=== PATIENT | male | born 1945 | race Caucasian/White ===

== ENCOUNTER 2016-07-26 08:26 | Day surgery (SDC) | payer BC ==
--- NOTE | ~2016-07-26 | EGD ---
EGD REPORT [facility] [address] [address] NAME: BLAYNE KIM : [birth year] STATUS : REG [facility] PAT#: [id number] AGE: 71 ADM/REG DATE : 07/26/16 MR#: [id number] REPORT SERV DATE: 07/26/16 DICTATED BY: MATTHEW SALINAS DATE: 07/26/16 REPORT STATUS : Draft TRANSCRIBED BY: [facility] DATE: 07/26/16 [facility] Patient Name: Blayne Kim Date of : 1945 Attending MD: MATTHEW SALINAS MD Procedure Date No Time: 07/26/2016 Procedure: Colonoscopy Indications: Generalized abdominal pain, Chronic diarrhea Referring MD: ZACH FOURNIER MD Medicines: Propofol per Anesthesia Complications: No immediate complications. Procedure: Pre-Anesthesia Assessment: - ASA Grade Assessment: III - A patient with severe systemic disease. After I obtained informed consent, the scope was passed under direct vision. Throughout the procedure, the patient's blood pressure, pulse, and oxygen saturations were monitored continuously. The CF [id number] was introduced through the anus and advanced to the cecum, identified by appendiceal orifice and ileocecal valve. The colonoscopy was performed without difficulty. The patient tolerated the procedure well. The quality of the bowel preparation was good. Findings: The perianal and digital rectal examinations were normal. The colon (entire examined portion) appeared normal. Internal hemorrhoids were found during retroflexion and were Grade I (internal hemorrhoids that do not prolapse). Impression: - The entire examined colon is normal. - Internal hemorrhoids. Recommendation: - Discharge patient to home (ambulatory). Procedure Code(s): --- Professional --- 69488, Colonoscopy, flexible, proximal to splenic flexure; diagnostic, with or without collection of specimen(s) by brushing or washing, with or without colon decompression (separate procedure) Diagnosis Code(s): --- Professional --- K64.0, First degree hemorrhoids R10.84, Generalized abdominal pain K52.9, Noninfective gastroenteritis and colitis, EGD REPORT [facility] [address] [place], [place] [address] [facility] [address] NAME: BLAYNE KIM : [birth year] STATUS : REG [facility] PAT#: [id number] AGE: 71 ADM/REG DATE : 07/26/16 MR#: [id number] REPORT SERV DATE: 07/26/16 DICTATED BY: MATTHEW SALINAS. DATE: 07/26/16 REPORT STATUS : Draft TRANSCRIBED BY: [email or web address] DATE: 07/26/16 unspecified CPT copyright 2013 [employer]. All rights reserved. The codes documented in this report are preliminary and upon optical assistant review may be revised to meet current compliance requirements. Matthew Salinas MD MATTHEW SALINAS MD 07/26/2016 9:17 AM This report has been signed electronically. Number of Addenda: 0 Note Initiated On: 07/26/2016 8:53 AM Scope Withdrawal Time 0 hours 6 minutes 16 seconds [address] [facility] [place] [address]
--- NOTE | ~2016-07-26 | EGD ---
EGD REPORT [facility] [address] [address] NAME: BLAYNE KIM : [birth year] STATUS : REG [facility]#: [id number] AGE: 71 ADM/REG DATE : 07/26/16 MR#: [id number] REPORT SERV DATE: 07/26/16 DICTATED BY: MATTHEW SALINAS DATE: 07/26/16 REPORT STATUS : Draft TRANSCRIBED BY: [facility] DATE: 07/26/16 Endoscopy Center Patient Name: Blayne Kim Date of : 1945 Attending MD: MATTHEW SALINAS MD Procedure Date No Time: 07/26/2016 Procedure: Upper GI endoscopy Indications: Epigastric abdominal pain, Dysphagia Referring MD: ZACH FOURNIER MD Medicines: Propofol per Anesthesia Complications: No immediate complications. Procedure: Pre-Anesthesia Assessment: - ASA Grade Assessment: III - A patient with severe systemic disease. After obtaining informed consent, the endoscope was passed under direct vision. Throughout the procedure, the patient's blood pressure, pulse, and oxygen saturations were monitored continuously. The GIF [id number] was introduced through the mouth, and advanced to the second part of duodenum. The upper GI endoscopy was accomplished without difficulty. The patient tolerated the procedure well. Findings: A benign-appearing, intrinsic mild stenosis was found and was traversed. A guidewire was placed and the scope was withdrawn. Dilation was performed with a Savary dilator with no resistance at 54 Fr. Diffuse mild inflammation characterized by erosions and erythema was found in the stomach. Biopsies were taken with a cold forceps for histology. The examined duodenum was normal. Biopsies were taken with a cold forceps for histology. Impression: - Benign-appearing esophageal stricture. Dilated. - Chronic gastritis. Biopsied. - Normal examined duodenum. Biopsied. Recommendation: - Discharge patient to home (ambulatory). Procedure Code(s): --- Professional --- 98184, Esophagogastroduodenoscopy, flexible, transoral; with insertion of guide wire followed by passage of dilator(s) through esophagus over guide wire 53934, Esophagogastroduodenoscopy, flexible, transoral; with biopsy, single or multiple EGD REPORT [facility] [address] [address] NAME: BLAYNE KIM : [birth year] [place] : [place] [facility] PAT#: [id number] AGE: 71 ADM/REG DATE : 07/26/16 MR#: [id number] REPORT SERV DATE: 07/26/16 DICTATED BY: MATTHEW SALINAS. DATE: 07/26/16 REPORT STATUS : Draft TRANSCRIBED BY: [employer] DATE: 07/26/16 Diagnosis Code(s): --- Professional --- K22.2, Esophageal obstruction K29.50, Unspecified chronic gastritis without bleeding R10.13, Epigastric pain R13.10, Dysphagia, unspecified CPT copyright 2013 [employer]. All rights reserved. The codes documented in this report are preliminary and upon health and human performance professor review may be revised to meet current compliance requirements. Matthew Salinas MD MATTHEW SALINAS MD 07/26/2016 9:07 AM This report has been signed electronically. Number of Addenda: 0 Note Initiated On: 07/26/2016 8:55 AM Scope Withdrawal Time 0 hours 0 minutes [address] [place], [place] [address] [address]
[~2016-07-26 08:26] MED LIST: ACIPHEX PO; CHLORTHALID50 MG PO; GLUCOPHXR7 PO; LEXAPRO20 PO; LIPITOR20 PO; LISINOPRIL40 MG PO; NORCO1 TA1 PO; NORV5 PO; PRILO PO; ZOCOR40 PO
== END 2016-07-26 23:59 | disposition home health service (06) ==
LOC: DMU 08:26
PROVIDERS: Internal Medicine Gastroenterology
PROC: 0D748ZZ Dilation of Esophagogastric Junction, Via Natural or Artificial Opening Endoscopic (ICD-10-PCS; principal; 2016-07-26 09:30)
PROC: 0DB68ZX Excision of Stomach, Via Natural or Artificial Opening Endoscopic, Diagnostic (ICD-10-PCS; 2016-07-26 09:30)
PROC: 0DJD8ZZ Inspection of Lower Intestinal Tract, Via Natural or Artificial Opening Endoscopic (ICD-10-PCS; 2016-07-26 09:30)
DX: K31.7 Polyp of stomach and duodenum (principal); K22.2 Esophageal obstruction; K64.0 First degree hemorrhoids; K52.9 Noninfective gastroenteritis and colitis, unspecified; I10 Essential (primary) hypertension; E78.5 Hyperlipidemia, unspecified; E78.00 Pure hypercholesterolemia, unspecified; G47.33 Obstructive sleep apnea (adult) (pediatric); F32.9 Major depressive disorder, single episode, unspecified; K21.9 Gastro-esophageal reflux disease without esophagitis; E11.9 Type 2 diabetes mellitus without complications; Z79.899 Other long term (current) drug therapy; Z88.8 Allergy status to other drugs, medicaments and biological substances; Z98.890 Other specified postprocedural states
CPT/HCPCS: 82962; 88305